=== PATIENT | female | born 1965 | race African-American/Black ===

== ENCOUNTER 2021-10-13 09:33 | Emergency (ER) | payer OTHER ==
[~2021-10-13] VITALS: Ht 175.3 cm; Wt 80.7 kg
[2021-10-13] MEDS ORDERED: PREDNISONE 20 M20 MG PO (11:14)
[2021-10-13 11:40] VITALS: BP 122/76
[2021-10-14] MEDS ORDERED: EPIPEN 2-P0.3 MG/0.3 IM (11:31)
== END 2021-10-13 11:40 | disposition home or self-care (01) ==
LOC: ER 09:33
DX: R21 Rash and other nonspecific skin eruption (principal); I10 Essential (primary) hypertension; F17.210 Nicotine dependence, cigarettes, uncomplicated; Z98.890 Other specified postprocedural states

== ENCOUNTER 2021-10-14 09:41 | Emergency (ER) | payer OTHER ==
[~2021-10-14] VITALS: Ht 175.3 cm; Wt 83.9 kg
[~2021-10-14 09:41] MED LIST: PREDNISONE 20 M20 MG PO
[2021-10-14 10:25] VITALS: BP 124/83
[2021-10-14] MEDS ORDERED: EPIPEN 2-P0.3 MG/0.3 IM (11:31)
== END 2021-10-14 11:25 | disposition home or self-care (01) ==
LOC: ER 09:41
DX: L50.9 Urticaria, unspecified (principal); I10 Essential (primary) hypertension; Z98.890 Other specified postprocedural states